=== PATIENT | female | born 1960 | race African-American/Black ===

== ENCOUNTER 2017-11-29 11:24 | Emergency (ER) | payer OTHER ==
[2017-11-29] MEDS: NITROGLYCERIN 2% 1 GM OINT PKT TD (12:02)
[2017-11-29 12:38] LABS: ADD MAN DIFF? NO
[2017-11-29] MEDS: NITROGLYCERIN (SL) 0.4 MG TAB SL (12:38)
[2017-11-29 12:39] LABS: WHITE BLOOD COUNT 7.6 10^3/ul (4.8-10.8)
[2017-11-29 12:40] LABS: BASOPHILS % 0.3 % (0.0-2.0); EOSINOPHILS % 0.5 % (0.0-7.0); HEMATOCRIT 39.1 % (37.0-47.0); HEMOGLOBIN 12.7 g/dl (12.0-16.0); LYMPHOCYTES # 2.2 10^3/ul (0.8-2.9); LYMPHOCYTES % 29.1 % (15.0-51.0); MEAN CORPUSCULAR HEMOGLOBIN 27.6 pg (29.0-33.0); MEAN CORPUSCULAR HGB CONC 32.5 g/dl (32.0-37.0); MEAN PLATELET VOLUME 10.7 fl (7.4-10.4); MONOCYTE # 0.6 10^3/ul (0.3-0.9); MONOCYTES % 7.4 % (0.0-11.0); NEUTROPHIL # 4.8 10^3/ul (1.6-7.5); NEUTROPHILS % 62.4 % (39.0-77.0); PLATELET COUNT 259 10^3/UL (140-415); RED CELL DISTRIBUTION WIDTH 16.5 % (11.5-14.5)
[2017-11-29] MEDS: morphine 4 MG/ML VIAL IV (13:07)
[2017-11-29] MEDS: ONDANSETRON 4 MG INJ IV (13:07)
[2017-11-29] MEDS: HYDROmorphONE 1 MG/ML SYG IV ×2 (13:37→15:51)
[2017-11-29 14:21] LABS: ANION GAP 15 (8-16); BLOOD UREA NITROGEN 13 mg/dl (7-20); CALCIUM 10.1 mg/dl (8.4-10.2); CARBON DIOXIDE 32 mmol/L (21-31); CHLORIDE 102 mmol/L (97-110); CREATININE 0.73 mg/dl (0.44-1.00); GLUCOSE 83 mg/dl (70-220); POTASSIUM 3.4 mmol/L (3.5-5.1); SODIUM 146 mmol/L (135-144)
[2017-11-29 14:33] LABS: TROPONIN-I < 0.012 ng/ml (0.00-0.12)
[2017-11-29] MEDS: POTASSIUM CHLORIDE (SR) 20 MEQ TAB PO (14:36)
[2017-11-29] MEDS: LABETALOL HCL 20MG INJ IV (15:50)
== END 2017-11-29 17:13 | disposition short-term general hospital (02) ==
LOC: E/R 11:24
DX: R07.9 Chest pain, unspecified (principal); I10 Essential (primary) hypertension
CPT/HCPCS: 36415; 71045; 80048; 84484; 85025; 93005; 96374; 96375; 96376; 99291-25